=== PATIENT | male | born 1955 | race Caucasian/White ===

== ENCOUNTER → 2016-10-03 | Outpatient (CLI) | payer BC | END | disposition home or self-care (01) | LOC: CDC 09:47 | DX: M79.641 Pain in right hand (principal); M72.0 Palmar fascial fibromatosis [Dupuytren] | CPT/HCPCS: 93000 ==

== ENCOUNTER → 2017-04-17 | Outpatient (CLI) | payer BC | END | disposition home or self-care (01) | LOC: CDC 15:03 | DX: Z01.810 Encounter for preprocedural cardiovascular examination (principal); M79.642 Pain in left hand; M72.0 Palmar fascial fibromatosis [Dupuytren] | CPT/HCPCS: 93000 ==